=== PATIENT | female | born 1945 | race Caucasian/White ===

== ENCOUNTER → 2016-05-31 10:30 | Outpatient (CLI) | payer MEDICARE, OTHER ==
[2015-12-21 09:51] VITALS: BMI 27.6
[~2016-05-31 10:30] MED LIST: ACTOS45 MG PO; ALFALFA; AMITRIPTYLINE100 MG PO; BETA CAROT10000 UNIT PO; CALCIUM PO; CARAFATE1 G PO; CINNAMON500 MG PO; FEXOFENADINE H180 MG PO; FLAXSEED OIL1000 MG PO; FORTAMET1000 MG/BO PO; GLUCOPHAGE1000 MG PO; GLUCOTROL XL 1010 MG PO; HUMULIN N100 U/ML; HYDROCODON-ACET15 ML PO; HYDROCODONE-APA1 TAB PO; INTEGRA CAPSUL1 EACH PO; INTEGRA PLUS C1 EACH PO; LANTUS SOL100 UNIT/1 SC; LANTUS SOL100 UNIT/1 SQ; LEVSIN/ANASP0.125 MG PO; MAGNESIUM PO; NEURONTIN 300300 MG PO; NORCO 10/325 TA1 TA1 PO; PERCOCET 10/3251 TA1 PO; PRAVACHOL40 MG PO; PROBIOTIC; PROTONIX40 MG PO; RELAFEN500 MG PO; SALAGEN5 MG PO; SINGULAIR10 MG PO; STARLIX120 MG PO; TANDEM DUAL AC106 MG PO; TESSALON PERLE100 MG PO; VITAMIN B COMPL1 TA1 PO; VITAMIN B COMPL1 TAB PO; ZANAFLEX4 MG PO; ZANTAC150 MG PO; ZOLOFT50 MG PO; ZYPAN OR; [UNRECOGNIZED DRUG - OTHER] PO
== END | disposition home or self-care (01) ==
LOC: D.RAD 10:30
DX: S82.891A Other fracture of right lower leg, initial encounter for closed fracture (principal)

== ENCOUNTER → 2016-08-10 16:04 | Outpatient (CLI) | payer MEDICARE, OTHER ==
[2015-12-21 09:51] VITALS: BMI 27.6
== END | disposition home or self-care (01) ==
LOC: D.LAB 16:04
DX: R19.7 Diarrhea, unspecified (principal)

== ENCOUNTER 2016-09-15 11:55 | Emergency (ER) | payer MEDICARE, OTHER ==
[2015-12-21 09:51] VITALS: BMI 27.6
[2016-09-15 13:23] LABS: BASOPHILS 0.1 % (0-2); EOSINOPHILS 2.7 % (0-7); HEMATOCRIT 39.3 % (36.0-48.0); HEMOGLOBIN 12.6 g/dL (12-16); IMMATURE GRANULOCYTES 0.3 % (0-5); LYMPHOCYTES 30.9 % (15-50); MCH 27.9 pg (26.0-34.0); MCHC 32.1 g/dL (31.0-37.0); MCV 87.1 fL (80.0-100.0); MEAN PLATELET VOLUME 8.9 fL (7.4-10.4); MONOCYTES 8.8 % (2-11); NEUTROPHILS 57.2 % (40-80); RBC 4.51 10x6/uL (4.00-5.40); RDW 14.9 % (11.5-14.5); WBC 7.1 10x3/uL (4.8-10.8)
[2016-09-15 13:24] LABS: PLATELET COUNT 257 10x3/uL (130-400)
[2016-09-15 14:11] LABS: ALBUMIN 3.9 g/dL (3.4-5.0); ALKALINE PHOSPHATASE 115 U/L (46-116); ALT (SGPT) 28 U/L (10-68); BILIRUBIN - TOTAL 0.18 mg/dL (0.2-1.3); CALC OSMOLALITY 282 mosm/kg (275-300); CALCIUM 9.2 mg/dL (8.5-10.1); CARBON DIOXIDE 24.6 mmol/L (21.0-32.0); CHLORIDE - SERUM 103 mmol/L (98-107); CREATININE - SERUM 0.9 mg/dL (0.6-1.3); POTASSIUM - SERUM 4.5 mmol/L (3.5-5.1); PROTEIN - SERUM 7.9 g/dL (6.4-8.2); SODIUM 139 mmol/L (136-145); UREA NITROGEN 28 mg/dL (7-18); eGFR NON AFRICAN AMERICAN 65 mL/min (90-120)
[2016-09-15 14:14] LABS: GLUCOSE 79 mg/dL (74-106)
[2016-09-15 14:23] LABS: CHOL - HDL RATIO 2.6 ratio (2.3-4.1); CHOLESTEROL, TOTAL 149 mg/dL (0-200); CKMB 6.3 U/L (0.0-3.6); CREATINE KINASE 760 UL (21-215); HDL CHOLESTEROL 58 mg/dL (32-96); LDL CHOLESTEROL 57 mg/dL (0-100); TRIGLYCERIDE 172 mg/dL (30-200)
[2016-09-15 14:27] LABS: TROPONIN-I < 0.017 ng/mL (0.000-0.060)
== END 2016-09-15 16:01 | disposition home or self-care (01) ==
LOC: D.ER 11:55
PROVIDERS: Emergency Medicine
DX: R07.89 Other chest pain (principal); J06.9 Acute upper respiratory infection, unspecified; F41.9 Anxiety disorder, unspecified; E11.9 Type 2 diabetes mellitus without complications; I10 Essential (primary) hypertension; R00.1 Bradycardia, unspecified

== ENCOUNTER → 2016-09-21 13:33 | Outpatient (CLI) | payer MEDICARE, OTHER ==
[2015-12-21 09:51] VITALS: BMI 27.6
== END | disposition home or self-care (01) ==
LOC: D.MRI 13:33
DX: M25.371 Other instability, right ankle (principal)

== ENCOUNTER 2016-09-28 05:49 | Day surgery (SDC) | payer MEDICARE, OTHER ==
[2016-09-27 12:27] LABS: HEMATOCRIT 39.8 % (36.0-48.0); HEMOGLOBIN 12.8 g/dL (12-16); MCH 28.1 pg (26.0-34.0); MCHC 32.2 g/dL (31.0-37.0); MCV 87.3 fL (80.0-100.0); MEAN PLATELET VOLUME 9.1 fL (7.4-10.4); RBC 4.56 10x6/uL (4.00-5.40); RDW 15.1 % (11.5-14.5); WBC 6.5 10x3/uL (4.8-10.8)
[2016-09-27 12:43] LABS: ANION GAP 17.8 mmol/L (8-16); CALCIUM 9.4 mg/dL (8.5-10.1); CARBON DIOXIDE 22.7 mmol/L (21.0-32.0); CREATININE - SERUM 0.9 mg/dL (0.6-1.3); POTASSIUM - SERUM 4.5 mmol/L (3.5-5.1)
[~2016-09-28] VITALS: Ht 157.5 cm; Wt 65.8 kg
--- NOTE | ~2016-09-28 | OP ---
PATIENT NAME: JOSE ARMANDO CARR MEDICAL RECORD: [id number] :43 LOCATION:D.OPS ADMISSION DATE: SURGEON: SUMANTH SAMS MD DATE OF OPERATION: 09/28/2016 PREOPERATIVE DIAGNOSIS: Nonunited right fibula fracture. POSTOPERATIVE DIAGNOSIS: Nonunited right fibula fracture. PROCEDURE: Open reduction and internal fixation of nonunited right fibula fracture. SURGEON: Sumanth Sams MD. ANESTHESIA: General. INTRAOPERATIVE COMPLICATIONS: None. SUMMARY OF PATHOLOGIC FINDINGS: Although the MRI showed that she had a clear, clean-cut fracture line, she had a substantial amount of known callus. It was as much of the malunion, there is a nonunion. The malunion/nonunion was taken down and this was fixed anatomically. OPERATIVE SUMMARY IN DETAIL: After obtaining the appropriate preoperative orthopedic surgery consent as well as anesthetic consultation, evaluation and clearance, the patient was brought to operating room and placed on the operating table in supine position. After general laryngeal mask was administered, tourniquet was placed about the proximal aspect of the right lower extremity. Right lower extremity was prepped and draped in routine sterile fashion. The leg was elevated and exsanguinated, tourniquet inflated to 350 mmHg. Routine incision was made. This was taken down to the periosteum. The fibula fracture was identified. It was broken up with osteotome as well as a small sagittal saw and it was then placed in the appropriate position on AP and lateral planes and then a 3-hole fibular VariAx plate was utilized. Serial and sequential drill and fill were used with both combination of cortical screws as well as locking screws. Having completed this, the wound was copiously irrigated and closed with 2-0 Vicryl followed by 4-0 Prolene in running fashion. Sterile dressings were applied. Tourniquet was deflated. A posterior L&U splint was applied. The patient was awakened, taken to recovery room in stable condition. All final needle and sponge counts were correct. TRANSINT:[id number] Voice Confirmation ID: [id number] DOCUMENT ID: [id number] SUMANTH SAMS MD CC: [id number] DICTATION DATE: 10/05/16 0459 [employer] ENGINEER: 10/05/16 1321 [facility] 09/28/16 [place] [address]
[~2016-09-28 05:49] MED LIST changes: +ATIVAN0.5 MG PO; +PROAIR HFA8.5 GM INH
[2016-09-28] MEDS ORDERED: KLONOPIN1 MG PO (08:57)
[2016-09-28 08:58] VITALS: BP 140/69; Ht 157.5 cm; Wt 65.8 kg
[2016-09-28] MEDS ORDERED: MEPERIDINE HCL50 MG PO (12:16)
--- NOTE | 2016-09-28 14:29 | NUR ---
1410--DISCHARGE INSTRUCTIONS GIVEN, PT OFF UNIT VIA WC. CRYSTAL NIEVES
== END 2016-09-28 14:10 | disposition home or self-care (01) ==
LOC: D.OPS 05:49 → D.PAN 10:15 → D.OPS 10:45 → D.PAN 10:45 → D.OPS 14:10
PROVIDERS: Anesthesiology
DX: S82.401A Unspecified fracture of shaft of right fibula, initial encounter for closed fracture (principal); Z01.812 Encounter for preprocedural laboratory examination

== ENCOUNTER → 2016-10-30 09:40 | Outpatient (CLI) | payer MEDICARE, OTHER ==
[2016-09-28 08:58] VITALS: BMI 26.6
[~2016-10-30 09:40] MED LIST changes: +KLONOPIN1 MG PO; +MEPERIDINE HCL50 MG PO
== END | disposition home or self-care (01) ==
LOC: D.MRI 09:40
DX: H53.10 Unspecified subjective visual disturbances (principal)

== ENCOUNTER → 2017-01-30 14:04 | Outpatient (CLI) | payer MEDICARE, OTHER ==
[2017-01-31 08:21] LABS: IMMUNOGLOBULIN A 290 mg/dL (64-422); IMMUNOGLOBULIN G 730 mg/dL (700-1600); IMMUNOGLOBULIN M 62 mg/dL (26-217)
[2017-01-31 09:16] LABS: IMMUNOGLOBULIN E 2 IU/mL (0-100)
== END | disposition home or self-care (01) ==
LOC: D.LABREF 14:04
PROVIDERS: Internal Medicine Pulmonary Disease
DX: J44.9 Chronic obstructive pulmonary disease, unspecified (principal)

== ENCOUNTER → 2017-10-05 12:53 | Outpatient (CLI) | payer MEDICARE, OTHER ==
[2016-09-28 08:58] VITALS: BMI 26.6
== END | disposition home or self-care (01) ==
LOC: D.MRI 12:53
DX: M54.12 Radiculopathy, cervical region (principal)

== ENCOUNTER → 2017-10-09 15:09 | Outpatient (CLI) | payer MEDICARE, OTHER ==
[2016-09-28 08:58] VITALS: BMI 26.6
== END | disposition home or self-care (01) ==
LOC: D.MRI 15:09
DX: M25.511 Pain in right shoulder (principal)